=== PATIENT | male | born 1950 | race Caucasian/White ===

== ENCOUNTER 2024-10-20 07:17 | Observation (INO) ==
--- NOTE | 2024-10-20 08:01 | Emergency Department Note ---
Impression & Plan Acute right flank pain, Calculus of right ureter ED Provider Note CHIEF COMPLAINT: Acute right flank pain 8 hours HISTORY OF PRESENT ILLNESS: Patient is a 73-year-old male with past medical history significant for dyslipidemia, hypothyroidism, diabetes, sleep apnea, and history of kidney stones who returns to the emergency department for evaluation of right flank pain. Patient was seen and evaluated here over the weekend for sudden onset of right flank pain and was found to have a large, 8 mm proximal right ureteral stone. He saw urology yesterday and is scheduled for surgical intervention today. Patient reports that he actually had a good day yesterday. He took oxycodone first thing in the morning, but did not really have significant pain. He did take some ibuprofen throughout the day. He was fine when he went to bed at 2100 last night, but states that he woke at midnight with increased pain. He tried taking Tylenol and oxycodone, without relief and at 0430 this morning, he was quite uncomfortable. He rates his pain an 8/10 currently. He did not think that he could wait until 1000 when he is scheduled to arrive for his surgery, and thus presented to the emergency department now. He still rates his pain an 8/10. No nausea or vomiting. He has been able to urinate reports that urine is not grossly bloody. No fevers. REVIEW OF SYSTEMS: Review of systems as per HPI. All other systems reviewed were negative. 10 systems reviewed. PMH: External medical records are reviewed and summarized as above/below. See Problem List. SOCIAL HISTORY: Patient lives at home. PHYSICAL EXAM: Vital Signs: Reviewed Nurse's notes. CONSTITUTIONAL: Patient is a well-appearing 73-year-old male who is awake and alert and in no acute distress. CARDIOVASCULAR: Regular rate and rhythm. Peripheral pulses easily palpable. RESPIRATORY: Breath sounds equal and clear to auscultation. ABDOMEN: Bowel sounds are present. The abdomen is soft, nontender, nondistended. No guarding or rebound. INTEGUMENTARY: No lesions or rash, normal skin turgor. LYMPH: No lymphadenopathy. EMERGENCY DEPARTMENT COURSE: The patient was seen and assessed as above. External medical records reviewed, including urology note, preoperative assessment and prior ED visit from a few days ago. IV lock was initiated he was treated with morphine IV x 2 and Zofran IV. He was given a liter bolus of normal saline solution. Laboratory studies collected and KUB ordered. I did message to Candelaria Bernstein, with urology, at [phone] and kept her appraised of the ED evaluation. Diagnostics, as interpreted by me: Laboratory studies: Normal white count at 7500. H&H 12.9 and 38.8. No electrolyte imbalance. Mildly elevated creatinine at 1.44. Patient did report improved pain management while in the ED. He was seen by urology, and plan will be to go to the OR as scheduled. He remained stable in the emergency department pending urologic intervention. Chronic conditions affecting care: Obesity, recurrent kidney stones, dyslipidemia, hypothyroidism Differential diagnosis: UTI, pyelonephritis, kidney stone, passed stone. Past Med/Surg History Problem List Calculus of right ureter (Acute) Acute right flank pain (Acute) Renal colic Encounter for pre-operative examination Right ureteral stone Ureterolithiasis (Acute) Back pain (Acute) Medical History History of nephrolithotomy with removal of calculi x2---PCNL--one on each side due to bilateral staghorn calculi History of kidney stones Borderline diabetes "I follow a diet and exercise, no meds" Hypothyroidism Hearing deficit Hyperlipidemia Sleep apnea non-compliant with device Surgical History History of tonsillectomy History of colonoscopy History of umbilical hernia repair History of surgery maxillary stone removed History of tooth extraction History of adenoidectomy Family History Other No family history of adverse response to anesthesia Social History Smoking Status: Current every day smoker Second Hand Exposure: No; Do You Dip or Chew Tobacco: No; Hx Alcohol Use: No Hx Substance Use: No Preferred Language: Albanian Communication Ability: Effective Furnace Process Supervisor Required: No Beliefs That Will Affect Care: None Current Living Situation: Alone Feels Safe at Home: Yes Allergies Allergies Allergy/AdvReac Type Severity Reaction Status Date / Time No Known Allergies Allergy Verified 10/20/24 10:30 Home Meds Home Medications Medication Instructions Recorded Confirmed L.acidophil-L.casei-B.bifid-B.longum-FOS 1 cap PO DAILY 10/19/24 10/20/24 2 billion cell-50 mg capsule (Probiotic Blend) aspirin 81 mg capsule 81 mg PO QAM 10/19/24 10/20/24 atorvastatin 10 mg tablet 10 mg PO QAM 10/19/24 10/20/24 ibuprofen 200 mg capsule 400 mg PO Q6H PRN Pain 10/19/24 10/20/24 levothyroxine 75 mcg tablet 75 mcg PO QAM 10/19/24 10/20/24 magnesium 250 mg tablet 250 mg PO DAILY 10/19/24 10/20/24 multivitamin 1 tab PO QAM 10/19/24 10/20/24 potassium citrate 15 mEq (1,620 15 meq PO BID 10/19/24 10/20/24 mg) tablet,extended release tamsulosin 0.4 mg capsule (Flomax) 0.4 mg PO HS 10/19/24 10/20/24 Previous Rx's Medication Instructions Recorded oxycodone 5 mg tablet 5 mg PO Q8H PRN pain #14 tabs 10/15/24 sulfamethoxazole 800 1 tab PO BID 5 days #10 tabs 10/19/24 mg-trimethoprim 160 mg tablet (Bactrim DS) Results & Data (ED) Vital Signs Vital Signs - 24 hr 10/20/24 07:22 10/20/24 08:09 10/20/24 08:09 Temperature 36.5 C Temperature Source Skin Pulse Rate 73 Pulse Rate [Apical] 68 Pulse Rhythm [Apical] Respiratory Rate 17 14 Respiratory Effort / Characteristics Non-Labored Spontaneous Respiratory Depth Normal Respiratory Pattern Blood Pressure 165/90 H Blood Pressure [Left Arm] 140/90 Blood Pressure Mean 115 Blood Pressure Mean [Left Arm] 106 Blood Pressure Position Sitting Blood Pressure Position [Left Arm] Pulse Oximetry 98 94 Oxygen Delivery Method Room Air Room Air Room Air Oxygen Flow Rate Sepsis Recent Fever Within 48 Hours No Sepsis New/Unexplained Change in Mental Status N/A Sepsis Action Taken by Nursing No Action Required 10/20/24 09:05 10/20/24 10:03 10/20/24 10:05 Temperature Temperature Source Pulse Rate Pulse Rate [Apical] 59 L 58 L Pulse Rhythm [Apical] Respiratory Rate 14 14 Respiratory Effort / Characteristics Respiratory Depth Respiratory Pattern Blood Pressure Blood Pressure [Left Arm] 146/83 H 138/74 Blood Pressure Mean Blood Pressure Mean [Left Arm] 104 95 Blood Pressure Position Blood Pressure Position [Left Arm] Pulse Oximetry 94 98 Oxygen Delivery Method Room Air Room Air Oxygen Flow Rate Sepsis Recent Fever Within 48 Hours Sepsis New/Unexplained Change in Mental Status Sepsis Action Taken by Nursing 10/20/24 10:31 10/20/24 11:42 10/20/24 11:50 Temperature 37.2 C 36.0 C L Temperature Source Oral Temporal Artery Scan Pulse Rate Pulse Rate [Apical] 62 72 66 Pulse Rhythm [Apical] Regular Regular Regular Respiratory Rate 20 19 18 Respiratory Effort / Characteristics Non-Labored Spontaneous Non-Labored Spontaneous Non-Labored Spontaneous Respiratory Depth Normal Normal Normal Respiratory Pattern Regular Regular Regular Blood Pressure Blood Pressure [Left Arm] 163/86 H 156/106 H 152/95 H Blood Pressure Mean Blood Pressure Mean [Left Arm] 111 122 114 Blood Pressure Position Blood Pressure Position [Left Arm] Semi-fowlers Semi-fowlers Semi-fowlers Pulse Oximetry 97 100 99 Oxygen Delivery Method Room Air Oxymask Oxymask Oxygen Flow Rate 6 6 Sepsis Recent Fever Within 48 Hours Sepsis New/Unexplained Change in Mental Status Sepsis Action Taken by Nursing Laboratory Data 10/20/24 08:05 10/20/24 08:05 Lab Results 10/20/24 Range/Units 08:05 WBC 7.49 (4.8-10.8) K/ul RBC 4.55 L (4.70-6.10) M/uL Hgb 12.9 L (14.0-18.0) g/dl Hct 38.8 L (42.0-52.0) % MCV 85.3 (80.0-100.0) fL MCH 28.4 (25.0-34.0) pg MCHC 33.2 (32.0-36.0) g/dL RDW Std Deviation 42.4 (36.4-46.3) fL RDW Coeff of Veronica 13.6 (11.5-14.5) % Plt Count 185 (130-400) K/uL MPV 11.0 (9.4-12.4) fL Immature Gran % (Auto) 0.3 % Neut % (Auto) 79.1 % Lymph % (Auto) 8.5 % Amite % (Auto) 10.1 % Eos % (Auto) 1.9 % Baso % (Auto) 0.1 % Neut # (Auto) 5.92 (1.40-6.50) K/uL Lymph # (Auto) 0.64 L (1.20-3.40) K/uL [place]ite # (Auto) 0.76 H (0.11-0.59) K/uL Eos # (Auto) 0.14 (0.00-0.50) K/uL Baso # (Auto) 0.01 (0.00-0.20) K/uL Immature Gran # (Auto) 0.02 (0.01-0.20) K/uL Sodium 136 (136-145) mmol/L Potassium 4.2 (3.5-5.1) mmol/L Chloride 103 (98-107) mmol/L Carbon Dioxide 27 (21-32) mmol/L Anion Gap 6 (3-11) BUN 20 (6-23) mg/dl Creatinine 1.44 H (0.6-1.4) mg/dl Est Cr Clr Drug Dosing 65.8 ml/min eGFR 51.95 BUN/Creatinine Ratio 13.9 (10-20) Glucose 123 H (70-99(Fasting)) mg/dl Calcium 8.8 (8.6-10.3) mg/dl Administered Medications Discontinued Medications Sodium Chloride (Nss) 1,000 mls @ 999 mls/hr IV .Q1H1M PARMJIT Stop: 10/20/24 08:55 Last Admin: 10/20/24 08:05 Dose: 999 mls/hr Documented By: CHIOMA Lactated Ringer's (Lr) 1,000 mls @ 15 mls/hr IV .Q24H PARMJIT Stop: 10/23/24 10:14 Last Infusion: 10/20/24 11:01 Dose: Infused Documented By: Admin: 10/20/24 10:46 Dose: 15 mls/hr Documented By: Morphine Sulfate (Morphine Sulfate 10 Mg/Ml Carp/Vial) 6 mg IV NOW STA Stop: 10/20/24 07:55 Last Admin: 10/20/24 08:06 Dose: 6 mg Documented By: CHIOMA Morphine Sulfate (Morphine Sulfate 10 Mg/Ml Carp/Vial) 6 mg IV NOW STA Stop: 10/20/24 09:15 Last Admin: 10/20/24 09:18 Dose: 6 mg Documented By: CHIOMA Ondansetron HCl (Ondansetron Inj 2 Mg/Ml 2 Ml Vial) 4 mg IV NOW STA Stop: 10/20/24 07:55 Last Admin: 10/20/24 08:06 Dose: 4 mg Documented By: CHIOMA Imaging Data Radiologist's Impression: KUB X-Ray 10/20/24 07:55 KUB HISTORY: RIGHT URETERAL STONE COMPARISON STUDY: CT of 10/15/2024 FINDINGS: The prior proximal right ureteral stone is not definitely seen by plain film. There are multiple bilateral low pelvic phleboliths which makes evaluation for distal ureteral calculi difficult. There is moderate retained stool which limits evaluation. No bowel obstruction seen. IMPRESSION: Limited evaluation with right ureteral calculus not definitely seen. ACT 112: Negative or not required by law. The above report was generated using voice recognition software. It may contain grammatical, syntax or spelling errors. Electronically signed by: Danial Godoy M.D. 10/20/2024 8:41 AM Discharge Plan Visit Data Chief Complaint: Kidney Stone Stated Complaint: RT BACK PAIN ED Provider: Pedro Spence ED Midlevel Provider: Kareem Pradhan Discharge Problem: Acute right flank pain, Calculus of right ureter Patient Disposition: Being Evaluated by Surgeon Condition: Fair Discharge Instructions Interventions: ED Discharge Assessment Last Done: 10/20/24 10:05
[2024-10-20] MEDS: SODIUM CHLORIDE 0.9% 1,000 ML IV SCH (08:05)
[2024-10-20] MEDS: MoRPHine SULFATE 10 MG/ML CARP/VIAL IV STA ×2 (08:06→09:18)
[2024-10-20] MEDS: ONDANSETRON INJ 2 MG/ML 2 ML VIAL IV STA (08:06)
[2024-10-20 08:26] LABS: Hematocrit (blood only) 38.8 % (42.0-52.0); Hemoglobin 12.9 g/dl (14.0-18.0); Immature Granulocytes # (auto) 0.02 K/uL (0.01-0.20); Immature Granulocytes % (auto) 0.3 %; Mean Corpuscular Hemoglobin 28.4 pg (25.0-34.0); Mean Corpuscular Volume 85.3 fL (80.0-100.0); Platelet Count 185 K/uL (130-400); RDW Standard Deviation 42.4 fL (36.4-46.3); Red Blood Count 4.55 M/uL (4.70-6.10); White Blood Count 7.49 K/ul (4.8-10.8)
--- NOTE | 2024-10-20 08:43 | XRay Report ---
KUB HISTORY: RIGHT URETERAL STONE COMPARISON STUDY: CT of 10/15/2024 FINDINGS: The prior proximal right ureteral stone is not definitely seen by plain film. There are mul tiple bilateral low pelvic phleboliths which makes evaluation for distal ureteral calculi difficult. There is moderate retained stool which limits evaluation. No bowel obstruction seen. IMPRESSION: Limited evaluation with right ureteral calculus not definitely seen. ACT 112: Negative or not required by law. The above report was generated using voice recognition software. It may contain grammatical, syntax o r spelling errors. Electronically signed by: Danial Godoy M.D. 10/20/2024 8:41 AM
[2024-10-20 08:44] LABS: Anion Gap 6.0 (3-11); Blood Urea Nitrogen 20.0 mg/dl (6-23); Calcium 8.8 mg/dl (8.6-10.3); Carbon Dioxide 27.0 mmol/L (21-32); Chloride 103.0 mmol/L (98-107); Creatinine Clr Calc Pharmacy 65.8 ml/min; Glucose 123.0 mg/dl (70-99(Fasting)); Potassium 4.2 mmol/L (3.5-5.1); Sodium 136.0 mmol/L (136-145)
--- NOTE | 2024-10-20 09:31 | Emergency Department Note ---
ED Visit Note I performed a substantial part of the MDM during the patient's EM visit. Though I did not see the patient face to face, I personally approved and/or made the documented management plan and acknowledge risk and complications. .
--- NOTE | 2024-10-20 10:14 | Urology Consultation ---
<Statement entered by Venu Coats MD - 10/20/24 10:52> Patient assessed and agree with plan as written will proceed to OR for stone management. Date of Consultation October 20, 2024 Assessment & Plan (1) Right ureteral stone: (2) Renal colic: Plan 73yo male who presented to the ED overnight due to severe right flank pain secondary to a known obstructing 8mm proximal right ureteral stone. In the ED, he received pain and nausea medication and reports improvement in symptoms. Patient scheduled for surgical intervention today for stone treatment. Plan to proceed as scheduled with cystoscopy, right retrograde pyelogram, ureteroscopy, possible ureteral dilation, laser destruction or extraction of the stone, insertion of right ureteral stent. Keep NPO. Will cover with ceftriaxone preoperatively. History of Present Illness History of Present Illness 73-year-old male who presented to the ED overnight for severe right flank pain. Patient with a known 8 mm obstructing proximal right ureteral stone with plans for scheduled surgical intervention today with Dr. Venu Coats. Patient reported he tried taking Tylenol and oxycodone with no relief. Due to the severe pain, he presented to the ED. In the ED he received IV fluids, morphine, and Zofran. He was afebrile and hemodynamically stable. Labs showed no leukocytosis and creatinine 1.44 (was previously 1.26). KUB was obtained however there was limited evaluation with the right ureteral stone not definitively seen. Patient was seen in the ED. He is awake and resting bed on arrival. No acute distress. Has been NPO other than a few sips of water with medication. Pain currently controlled with medication. No fevers. Allergies Allergy/AdvReac Type Severity Reaction Status Date / Time No Known Allergies Allergy Verified 10/19/24 11:53 Home Medications Medication Instructions Recorded Confirmed Type oxycodone 5 mg tablet 5 mg PO Q8H PRN pain #14 tabs 10/15/24 10/20/24 Rx L.acidophil-L.casei-B.bifid-B.longum-FOS 1 cap PO DAILY 10/19/24 10/20/24 History 2 billion cell-50 mg capsule (Probiotic Blend) aspirin 81 mg capsule 81 mg PO QAM 10/19/24 10/20/24 History atorvastatin 10 mg tablet 10 mg PO QAM 10/19/24 10/20/24 History ibuprofen 200 mg capsule 400 mg PO Q6H PRN Pain 10/19/24 10/20/24 History levothyroxine 75 mcg tablet 75 mcg PO QAM 10/19/24 10/20/24 History magnesium 250 mg tablet 250 mg PO DAILY 10/19/24 10/20/24 History multivitamin 1 tab PO QAM 10/19/24 10/20/24 History potassium citrate 15 mEq (1,620 15 meq PO BID 10/19/24 10/20/24 History mg) tablet,extended release sulfamethoxazole 800 1 tab PO BID 5 days #10 tabs 10/19/24 10/20/24 Rx mg-trimethoprim 160 mg tablet (Bactrim DS) tamsulosin 0.4 mg capsule (Flomax) 0.4 mg PO HS 10/19/24 10/20/24 History Patient History Medical History Borderline diabetes "I follow a diet and exercise, no meds" Hearing deficit History of kidney stones History of nephrolithotomy with removal of calculi x2---PCNL--one on each side due to bilateral staghorn calculi Hyperlipidemia Hypothyroidism Sleep apnea non-compliant with device Surgical History History of adenoidectomy History of colonoscopy History of surgery maxillary stone removed History of tonsillectomy History of tooth extraction History of umbilical hernia repair Family History Other No family history of adverse response to anesthesia Social History Smoking Status: Current every day smoker Second Hand Exposure: No; Do You Dip or Chew Tobacco: No; Hx Alcohol Use: No Hx Substance Use: No Preferred Language: Ugandan Communication Ability: Effective Emergency Response Coordinator Required: No Beliefs That Will Affect Care: None Current Living Situation: Alone Feels Safe at Home: Yes Review of Systems Review of Systems: All systems reviewed & are unremarkable except as noted in HPI & below Physical Exam Constitutional: no acute distress Respiratory: no respiratory distress and no labored breathing Musculoskeletal: Head/Neck/Chest: normocephalic Skin: No visible rashes or lesions to exposed skin areas Neurologic: moves all extremities and awake Psychiatric: A+Ox3, euthymic affect Results & Data Vital Signs (Past 12 Hours) Vital Signs Temp Pulse Pulse Resp BP BP Pulse Ox 10/20/24 10:03 58 L 14 138/74 98 10/20/24 09:05 59 L 14 146/83 H 94 10/20/24 08:09 10/20/24 08:09 68 14 140/90 94 10/20/24 07:22 36.5 C 73 17 165/90 H 98 O2 Del Method 10/20/24 10:03 10/20/24 09:05 Room Air 10/20/24 08:09 Room Air 10/20/24 08:09 Room Air 10/20/24 07:22 Room Air PG Care Time/CCT Total # of Minutes Spent Total Time Spent with Patient: Total time spent is greater than 50% in coordination of care (as documented) at patient's floor/unit and/or counseling patient: Coding Level of Care Code 35525 OFFICE CONSULT LVL 05/09M Diagnoses Right ureteral stone N20.1 Renal colic N23
[2024-10-20] MEDS: LACTATED RINGER'S 1,000 ML IV SCH ×2 (10:46→15:05)
--- NOTE | 2024-10-20 11:43 | Post Operative Brief Note ---
PG Immediate Post Op with CF Date of Surgery October 20, 2024 Pre & Post Diagnosis Operation Date: 10/20/24 11:25 Pre-Op Diagnosis: RIGHT BACK PAIN Post-Op Diagnosis: RIGHT BACK PAIN I identified the patient and participated in the time-out.: Yes Procedure Operation Date: 10/20/24 11:25 Actual Procedures p Cystoscopy, Insertion of Stent Catheter Right(Right) - Venu Coats MD Surgeon Venu Coats MD Laboratory Animal Caretaker na Estimated Blood Loss 0 Findings Consistent with Post-Op Diagnosis purulent brown drainage right ureter as soon as wire placed, trilobar hyperplasia enlarged prostate Specimens Specimen Description: #1 Urine Culture Drains Other (right 6 fr x 24 cm ureteral stent)
--- NOTE | 2024-10-20 14:02 | Anesthesiology Progress Note ---
Date of Service October 20, 2024 Anesthesia Post Procedure Vital Signs Vital Signs: Temp Pulse Pulse Resp BP BP Pulse Ox 10/20/24 13:45 36.6 C 83 18 103/88 96 10/20/24 13:30 62 18 137/79 96 10/20/24 13:15 76 21 150/89 H 92 10/20/24 13:00 69 21 140/86 92 10/20/24 12:45 36.7 C 62 20 132/79 97 10/20/24 12:30 59 L 14 144/84 H 95 10/20/24 12:20 60 14 148/91 H 95 10/20/24 12:10 61 18 123/89 99 10/20/24 12:00 64 18 144/86 H 100 10/20/24 11:50 66 18 152/95 H 99 10/20/24 11:42 36.0 C L 72 19 156/106 H 100 10/20/24 10:31 37.2 C 62 20 163/86 H 97 10/20/24 10:05 10/20/24 10:03 58 L 14 138/74 98 10/20/24 09:05 59 L 14 146/83 H 94 10/20/24 08:09 10/20/24 08:09 68 14 140/90 94 10/20/24 07:22 36.5 C 73 17 165/90 H 98 O2 Del Method O2 Flow Rate 10/20/24 13:45 Room Air 10/20/24 13:30 Room Air 10/20/24 13:15 Room Air 10/20/24 13:00 Room Air 0 10/20/24 12:45 Room Air 0 10/20/24 12:30 Room Air 0 10/20/24 12:20 Room Air 0 10/20/24 12:10 Room Air 0 10/20/24 12:00 Oxymask 2 10/20/24 11:50 Oxymask 6 10/20/24 11:42 Oxymask 6 10/20/24 10:31 Room Air 10/20/24 10:05 Room Air 10/20/24 10:03 10/20/24 09:05 Room Air 10/20/24 08:09 Room Air 10/20/24 08:09 Room Air 10/20/24 07:22 Room Air Pain Intensity Flank: Pain Intensity: 4 Transfer of Care Handoff Completed per policy Notes Mental Status: alert / awake / arousable Patient Amnestic to Procedure: Yes Nausea / Vomiting: adequately controlled Pain: adequately controlled Airway Patency, RR, SpO2: stable & adequate BP & HR: stable & adequate Hydration State: stable & adequate Anesthetic Complications: no major complications apparent and Pt Satisfied with anesthetic care
[2024-10-20] MEDS ORDERED: ACETAMINOPHEN 325 MG TAB PO PRN (14:03)
[2024-10-20] MEDS: cefTRIAXone SODIUM 2,000 MG/50 ML BAG IV STA (15:16)
[2024-10-20] MEDS: POTASSIUM CITRATE 10 MEQ TAB PO SCH (16:12)
[2024-10-20 19:59] VITALS: RESP 18
[2024-10-20] MEDS: TAMSULOSIN HCL 0.4 MG CAP PO SCH (21:45)
[2024-10-21 04:10] VITALS: PULSE 61
[2024-10-21] MEDS: LEVOTHYROXINE SODIUM 75 MCG TABLET PO SCH (05:55)
[2024-10-21 07:36] LABS: Hematocrit (blood only) 37.7 % (42.0-52.0); Hemoglobin 13.0 g/dl (14.0-18.0); Immature Granulocytes # (auto) 0.03 K/uL (0.01-0.20); Immature Granulocytes % (auto) 0.4 %; Mean Corpuscular Hemoglobin 29.5 pg (25.0-34.0); Mean Corpuscular Volume 85.7 fL (80.0-100.0); Platelet Count 219 K/uL (130-400); RDW Standard Deviation 42.7 fL (36.4-46.3); Red Blood Count 4.40 M/uL (4.70-6.10); White Blood Count 7.00 K/ul (4.8-10.8)
[2024-10-21 07:55] LABS: Anion Gap 6.0 (3-11); Blood Urea Nitrogen 15.0 mg/dl (6-23); Calcium 8.9 mg/dl (8.6-10.3); Carbon Dioxide 29.0 mmol/L (21-32); Chloride 102.0 mmol/L (98-107); Creatinine Clr Calc Pharmacy 89.4 ml/min; Glucose 110.0 mg/dl (70-99(Fasting)); Potassium 4.1 mmol/L (3.5-5.1); Sodium 137.0 mmol/L (136-145)
[2024-10-21] MEDS: ASPIRIN 81 MG ECTAB PO SCH (08:28)
[2024-10-21] MEDS: ATORVASTATIN 10 MG TAB PO SCH (08:28)
[2024-10-21] MEDS: MAGNESIUM OXIDE 400 MG TAB PO SCH (08:31)
[2024-10-21 08:36] VITALS: BP 152/79; TEMP 98.2; O2SAT 93
[2024-10-21] MEDS: cefTRIAXone SODIUM 2,000 MG/50 ML BAG IV SCH (09:54)
--- NOTE | 2024-10-21 11:02 | Urology Progress Note ---
Date of Service October 21, 2024 Assessment & Plan (1) Calculus of right ureter: Plan: Doing well POD#1 after right ureteral stent placement will plan for discharge and empiric abx return precautions reviewed will call if culture is not susceptible to Augmentin. Understands has stent in place and that this is not permanent and will need further surgery for right kindney. (2) Acute right flank pain: (3) Renal colic: Admission and Anticipated Discharge Date Admission Date: October 20, 2024 Subjective doing well overnight no fevers chills nausea or vomiting, discussed surgical findings, feels well able to toelrate diet Physical Exam Physical Exam: Gen: NAD Psych: Alert and Oriented Abd: Nontender nondistended : no sp tenderness Results & Data Vital Signs (Past 12 Hours) Vital Signs Temp Pulse Resp BP Pulse Ox O2 Del Method 10/21/24 08:36 36.8 C 61 18 152/79 H 93 Room Air 10/21/24 04:09 36.5 C 61 18 148/85 H 94 Room Air 10/20/24 23:33 36.7 C 69 18 146/80 H 94 Room Air Laboratory Results labs reviewed reassuring PG Care Time/CCT Total # of Minutes Spent Total Time Spent with Patient: Total time spent is greater than 50% in coordination of care (as documented) at patient's floor/unit and/or counseling patient: Coding Level of Care Code 36590 SUB INP/OBS CARE 03/06MIN Diagnoses Calculus of right ureter N20.1 Acute right flank pain R10.9 Renal colic N23
--- NOTE | 2024-10-21 11:37 | Discharge Summary ---
<Statement entered by Venu Coats MD - 10/21/24 11:57> Patient assessed plan reviewed and agree as written. Date of Service October 21, 2024 Admission HPI Per Admitting Provider Patient admitted after cystoscopy and right ureteral stent placement. Principal Diagnosis Right ureteral stone Discharge Exam Constitutional no acute distress Respiratory normal respiratory effort; no respiratory distress and no labored breathing Gastrointestinal (Abdomen) Inspection/Auscultation: abdomen normal to inspection Musculoskeletal Head/Neck/Chest: normocephalic Neurologic moves all extremities and awake Psychiatric Orientation: alert and oriented x 3 Discharge Data Allergies Allergy/AdvReac Type Severity Reaction Status Date / Time No Known Allergies Allergy Verified 10/20/24 10:30 Procedures Performed Operation Date: 10/20/24 11:25 Actual Procedures p Cystoscopy, Insertion of Stent Catheter Right(Right) - Venu Coats MD Hospital Course (1) Calculus of right ureter: Doing well POD#1 after right ureteral stent placement will plan for discharge and empiric abx return precautions reviewed will call if culture is not suscept ible to Augmentin. Understands has stent in place and that this is not permanent and will need further surgery for right kindney. (2) Acute right flank pain: (3) Renal colic: Total Time Total Time Spent Total Time Spent (In Minutes): 20 Discharge Plan Discharge Items Patient Disposition: Home - Self-Care Reason For Visit: RT BACK PAIN Discharge Diagnosis: Rt back pain Condition on Discharge: Fair Activity: Per Instructions section Lifting: None Bathing Comment: Okay to shower after discharge Sexual Activity: When tolerated Exercise/Sports: As tolerated Non-emergency contact: Urologist Call non-emergency contact if: your pain is worsening, your pain is concerning for you, you have a fever and your temperature is above 101 Follow-up/Referrals: Bryce Guevara MD [Primary Care Provider] - Diet: Regular Addtl Attending Provider Instructions: Please take all medications as prescribed and keep all follow-ups as scheduled. Please call our office at [phone] with any questions, concerns or need to reschedule appointments for any reason. We are happy to assist you. While you have a ureteral stent in place: Some discomfort is normal. Certain movements may trigger pain or a feeling that you need to urinate. You may also feel mild soreness or pressure before or during urination. These symptoms should go away a few days after the stent is removed. Your urine may be slightly pink or red. This is due to bleeding caused by minor irritation from the stent. This may happen on and off while you have the stent, it is not harmful and is to be expected. Medication to help minimize discomfort or bladder spasms, or to prevent infection may be prescribed. Take this as directed. Drink plenty of fluids to help flush out your urinary tract. If you go home with a catheter, wash with soapy water and a fresh washcloth twice daily. We recommend mild bar soap such as Dial or Dove. When to call [facility] at [phone]: Your urine contains heavy blood clots You are constantly leaking urine Fever of 101F or higher, chills, nausea, or vomiting Your pain is not relieved with medication The end of the stent comes out of your urethra Pending Studies at Discharge: Yes Stand-Alone Forms: My [facility], Pain - Opioid Pain Management, Smoking Cessation Medications and DC Order Prescriptions: New amoxicillin-pot clavulanate 875-125 mg tablet 1 tab PO BID 7 Days Qty: 14 0RF Continued ibuprofen 200 mg capsule 400 mg PO Q6H PRN (Reason: Pain) tamsulosin [Flomax] 0.4 mg capsule 0.4 mg PO HS atorvastatin 10 mg Tablet 10 mg PO QAM levothyroxine 75 mcg Tablet 75 mcg PO QAM potassium citrate 15 mEq Tablet Extended Release 15 meq PO BID aspirin 81 mg Capsule 81 mg PO QAM multivitamin Tablet 1 tab PO QAM magnesium 250 mg Tablet 250 mg PO DAILY Probiotic Blend 2 billion cell-50 mg Capsule 1 cap PO DAILY Rx Instructions: give with meal/snack oxycodone 5 mg tablet 5 mg PO Q8H PRN (Reason: pain) Qty: 14 0RF Discontinued sulfamethoxazole-trimethoprim [Bactrim DS] 800-160 mg tablet 1 tab PO BID 5 Days Qty: 10 0RF Discharge Orders: Discharge Order (Routine); Ordered 10/21/24 Ordered By: Tasha Qiuntana/Other Patient Handouts: Preventing Kidney Stones Admission Data Admit Date/Time: 10/20/24 11:52 Attending Provider: Venu Coats Admit Provider: Venu Coats Primary Care Provider: Bryce Guevara Other Interventions: Discharge Summary Assessment (RN) Last Done: 10/21/24 11:19 Coding Level of Care Code 67661 IN/OBS DISCH 30 MIN/LESS Diagnoses Calculus of right ureter N20.1 Acute right flank pain R10.9 Renal colic N23
--- NOTE | 2024-10-21 12:07 | Procedure Note ---
Procedure Note Date of Service October 20, 2024 SURGEON: Dr. Coats CARPET CLEANING TECHNICIAN: N/A PREOPERATIVE DIAGNOSIS: right ureteral and renal stone POSTOPERATIVE DIAGNOSIS: Same, suspected UTI PROCEDURE: cystoscopy, right ureteral stent placement FINDINGS: 1. purulent drainage right ureteral orifice ureteral stent placed curls in renal pelvis and bladder ANESTHESIA: General ESTIMATED BLOOD LOSS: N/A TUBES AND DRAINS: right ureteral stent 6 fr x 24 cm SPECIMENS: none COMPLICATIONS: none INDICATIONS FOR PROCEDURE: See preoperative diagnosis OPERATIVE DETAIL: The patient was prepped and draped in the usual fashion in the operating room. Antibiotics were given prior to starting the procedure. A well lubricated rigid cystoscope was inserted into the urethral meatus and advanced into the bladder. Care was taken to keep the lumen in the center of view. Cystourethroscopy was completed and unremarkable. The prostate was enlarged and obstructing with small median lobe The left and right ureteral orifices were identified in the orthotopic positions. brief cystoscopy was performed and unremarkable. A sensor wire was introduced into the right UO with positioning confirmed on fluoroscopy. Immediately purulent drainage was noted with brown cloudy fluid billowing from the right UO. as this is concerning for infection the decision was made to place a ureteral stent and defer stone treatment at this time. A 6 fr x 24 cm ureteral stent was then placed with positioning confirmed visually and fluoroscopically. The string was removed. All parts of the cystoscope and ureteroscope were removed intact from the patient. The patient tolerated the procedure well. Please note thatI was present for and directly performed all components of the procedure. Coding Additional Codes Date of Service (PG.[email or web address])
== END 2024-10-21 12:06 | disposition home or self-care (01) ==
LOC: ED 07:17 → OR 10:14 → PACUINP 10:14 → OR 10:27 → 3N 14:48